=== PATIENT | male | born 1940 | race Caucasian/White ===

== ENCOUNTER 2017-10-12 22:19 | Emergency (ER) | payer MEDICARE ==
[~2017-10-12] VITALS: Ht 185.4 cm; Wt 86.2 kg
[2017-10-12 22:24] VITALS: Ht 185.4 cm; Wt 86.2 kg
[2017-10-12 22:54] LABS: BASOPHILS 0.3 % (0-2); HEMATOCRIT 37.9 % (42.0-54.0); HEMOGLOBIN 12.6 g/dL (13.5-17.5); IMMATURE GRANULOCYTES 0.3 % (0-5); LYMPHOCYTES 24.7 % (15-50); MCH 30.1 pg (26.0-34.0); MCHC 33.2 g/dL (31.0-37.0); MCV 90.5 fL (80.0-100.0); MEAN PLATELET VOLUME 9.4 fL (7.4-10.4); MONOCYTES 12.3 % (2-11); NEUTROPHILS 59.4 % (40-80); PLATELET COUNT 199 10x3/uL (130-400); RBC 4.19 10x6/uL (4.20-6.10); RDW 13.5 % (11.5-14.5); WBC 6.8 10x3/uL (4.8-10.8)
[2017-10-12 23:03] LABS: INR 1.03 (0.85-1.17); PROTIME 13.1 SECONDS (11.6-15.0)
[2017-10-12 23:04] LABS: APTT 28.2 SECONDS (22.8-39.4)
[2017-10-12 23:10] LABS: ALBUMIN 3.4 g/dL (3.4-5.0); ALKALINE PHOSPHATASE 104 U/L (46-116); ALT (SGPT) 22 U/L (10-68); CALC OSMOLALITY 284 mosm/kg (275-300); CARBON DIOXIDE 28.3 mmol/L (21.0-32.0); CHLORIDE - SERUM 107 mmol/L (98-107); GLUCOSE 107 mg/dL (74-106); POTASSIUM - SERUM 3.8 mmol/L (3.5-5.1); PROTEIN - SERUM 6.5 g/dL (6.4-8.2); SODIUM 141 mmol/L (136-145); UREA NITROGEN 23 mg/dL (7-18); eGFR NON AFRICAN AMERICAN 78 mL/min (90-120)
[2017-10-12 23:39] LABS: CKMB 1.1 U/L (0.0-3.6); CREATINE KINASE 169 UL (21-232); PRO BNP 64 pg/mL (0-125); TROPONIN-I < 0.017 ng/mL (0.000-0.060)
[2017-10-12 23:46] LABS: APPEARANCE CLEAR (CLEAR); BILIRUBIN NEGATIVE (NEGATIVE); COLOR YELLOW (YELLOW); GLUCOSE NEGATIVE (NEGATIVE); KETONE NEGATIVE (NEGATIVE); NITRITE NEGATIVE (NEGATIVE); PROTEIN NEGATIVE (NEGATIVE); SPECIFIC GRAVITY 1.005 (1.005-1.020); UROBILINOGEN NORMAL (NORMAL)
[2017-10-13 00:23] VITALS: BP 115/73
== END 2017-10-13 00:28 | disposition home or self-care (01) ==
LOC: D.ER 22:19
PROVIDERS: Emergency Medicine
DX: R00.2 Palpitations (principal)